=== PATIENT | female | born 1995 | race Hispanic/Latino ===

== ENCOUNTER 2021-07-28 06:53 | Outpatient (CLI) | payer BC | END 2021-07-28 06:54 | disposition home or self-care (01) | LOC: BICULT 06:53 | PROVIDERS: ATTEND Internal Medicine | DX: R10.2 Pelvic and perineal pain (principal); D25.9 Leiomyoma of uterus, unspecified | CPT/HCPCS: 76856 ==

== ENCOUNTER 2022-10-06 17:02 | Emergency (ER) | payer BC ==
[2022-10-06] MEDS ORDERED: Rabies Vaccine Human 2.5 UNITS VIAL ONE (18:30)
== END 2022-10-06 19:00 | disposition home or self-care (01) ==
LOC: ERS 17:02
DX: J30.9 Allergic rhinitis, unspecified (principal); Z23 Encounter for immunization
CPT/HCPCS: 90375; 90376; 90471; 90675; 99281

== ENCOUNTER → 2022-10-09 | Emergency (ER) | payer BC ==
[~2022-10-09] MED LIST: Rabies Vaccine Human 2.5 UNITS VIAL IM ONE
== END ==
LOC: ERS 09:48
DX: Z23 Encounter for immunization (principal)
CPT/HCPCS: 90471; 90675

== ENCOUNTER → 2022-10-13 | Day surgery (SDC) | payer BC ==
[~2022-10-13] MED LIST changes: -Rabies Vaccine Human 2.5 UNITS VIAL IM ONE; +Rabies Vaccine Human 2.5 UNITS VIAL ONE
== END | disposition home or self-care (01) ==
LOC: ER/OP 18:05
PROVIDERS: ATTEND Internal Medicine
DX: Z23 Encounter for immunization (principal)
CPT/HCPCS: 90471; 90675

== ENCOUNTER → 2022-10-20 | Day surgery (SDC) | payer BC | END | disposition home or self-care (01) | LOC: ER/OP 11:39 | PROVIDERS: ATTEND Emergency Medicine | DX: Z23 Encounter for immunization (principal) | CPT/HCPCS: 90471; 90675 ==